=== PATIENT | male | born 1960 | race Caucasian/White ===

== ENCOUNTER 2016-05-16 12:30 | Emergency (ER) | payer OTHER ==
[~2016-05-16] VITALS: Ht 175.3 cm; Wt 74.8 kg
--- NOTE | ~2016-05-16 | EKG ---
[address] [place] [address] ELECTROCARDIOGRAM REPORT Name: AI CHENEY Room #: DEP GUNNAR [place]#: [id number] Admission: 05/16/16 Attend Phys: Discharge: 05/16/16 Date of : 62 Report #: [id number] THIS REPORT FOR: //name// [facility] ED Test Date: 2016-05-16 Test Time: 12:34:04 Pat Name: AI CHENEY Department: Room: Gender: Surveillance Dual Rate Officer: ANIYA : 1960 Requested By: Peter Langford Order Number: [id number] MD: Hesham Bowen Measurements Intervals Jay Em Rate: 59 P: [place]: QRS: 15 QRSD: 100 T: 50 QT: 415 QTc: 412 Interpretive Statements Sinus rhythm with first degree AV block Repolarization abnormality No previous ECG available for comparison Electronically Signed On 05-17-2016 7:30:08 EDGE TRIMMING MACHINE OPERATOR by Hesham Bowen [email or web address] <ELECTRONICALLY SIGNED> By: Hesham Bowen MD, [facility] 05/17/16 0730 1234 1234 Hesham Bowen MD, FACC /EPI
[2016-05-16] MEDS ORDERED: STATIN (12:52)
[2016-05-16 14:23] LABS: ANION GAP 8 mmol/L (7-16); BUN 22 mg/dL (7-18); CHLORIDE 103 mmol/L (98-107); CO2 27 mmol/L (21-32); CREATININE 1.1 mg/dL (0.6-1.3); GLUCOSE 127 mg/dL (70-99); POTASSIUM 4.2 mmol/L (3.5-5.1); SODIUM 138 mmol/L (136-145)
[2016-05-16 14:25] LABS: ABSOLUTE NEUTROPHILS 5.9 thou/uL (1.4-8.2); BASOPHILS 0.8 % (0.0-2.0); EOSINOPHILS 3.9 % (0.0-3.0); HEMATOCRIT 42.4 % (42.0-52.0); LYMPHOCYTES 17.5 % (24.0-44.0); MCV 87.9 fL (80.0-100.0); MONOCYTES 5.4 % (1.0-8.0); PLATELET COUNT 210 thou/uL (150-400); POLYS 72.4 % (36.0-66.0); RBC 4.82 mil/uL (4.50-6.00); RDW 12.8 % (10.5-14.5); WBC 8.2 thou/uL (4.0-11.0)
[2016-05-16 14:29] LABS: ALBUMIN 4.1 g/dL (3.4-5.0); ALKALINE PHOSPHATASE 73 U/L (46-116); SGOT 28 U/L (15-37); SGPT 37 U/L (30-65); TOTAL BILIRUBIN 0.4 mg/dL (<0.1-1.0); TOTAL PROTEIN 7.2 g/dL (6.4-8.2); TROPONIN-I < 0.04 ng/mL (<0.04-0.07)
[2016-05-16 14:30] LABS: MANUAL DIFF NO
[2016-05-16 15:30] LABS: URINE BILIRUBIN NEGATIVE (Negative); URINE BLOOD 2+ (Negative); URINE COLOR YELLOW; URINE GLUCOSE-RANDOM* NEGATIVE (Negative); URINE KETONES NEGATIVE (Negative); URINE LEUKOCYTES-REFLEX NEGATIVE (Negative); URINE PROTEIN (DIPSTICK) NEGATIVE (Negative); URINE UROBILINOGEN 0.2 E.U./dl (0.2-1.0)
[2016-05-16] MEDS ORDERED: TORADOL 10 MG T10 MG PO (15:32)
[2016-05-16] MEDS ORDERED: NORCO 5-325 TA1 EACH PO (15:32)
[2016-05-16 15:52] LABS: CASTS None Seen /LPF (None Seen); CRYSTALS None Seen /LPF (None Seen); SQUAMOUS None Seen /LPF (0-3); URINE WBC-REFLEX 0-5 Rare /HPF (0-5)
== END 2016-05-16 16:10 | disposition home or self-care (01) ==
LOC: ER 12:30
PROVIDERS: Emergency Medicine
DX: N20.0 Calculus of kidney (principal); E78.00 Pure hypercholesterolemia, unspecified